=== PATIENT | female | born 1985 | race Caucasian/White ===

== ENCOUNTER 2017-11-11 16:06 | Outpatient (RCR) | payer OTHER ==
--- NOTE | 2017-10-24 17:48 | PT INITIAL EVALUATION ---
MEDICAL DIAGNOSIS: neck pain and headaches in TREATMENT DIAGNOSIS: same DATE OF ONSET: 08/23/17 SUBJECTIVE: Magda Laughlin presents to physical therapy with neck pain and headaches that started approximately 2 months ago. She reports that she feels like the headaches started around the same time that she found out that she was . She reports that she is approximately 11 weeks along. She reports that it feels like the headaches starts behind her R ear and then the neck pain develops. She states that the neck pain and headaches are related. She states that she cannot find a position or a movement that makes the headaches or neck pain feel better once they have commenced. She states that sitting makes her headaches and neck pain worse. She states that she is better in the am and gets worse as the day progresses. Furthermore, she reports that the pain feels better if she is lying down. She denies any of the following symptoms: dizziness, tinnitus, night pain, unexplained weight loss, and difficulty swallowing. She reports that posture does not seem to affect her pain or headaches. She states that she typically has around 1-2 headaches a week, but the headaches and neck pain have lasted as long as 3 days and as short as one day once it commenced. She reports that she is having a great day today and is not currently feeling any headache or neck pain symptoms. Pain location is R sided: C0-C7 REHAB PROBLEM LIST: Increased Pain Decreased ROM Decreased Endurance Decreased Function Decreased ADL's PREVIOUS MEDICAL HISTORY: See EMR OCCUPATION: Coding at [employer] OBJECTIVE: Posture: She demonstrated fair posture, however, the pain did not increase or decreased with posture correction. ROM: cervical: protrusion, retraction, flexion, extension, lateral flexion R/L, and rotation R/L. NIL with normal end feels. Palpation: Today, she was not tender to palpation as she was having a great day. Sensation: Intact in B UEs and does not differ from side to side Special Tests: Since, she did not have pain, we created her symptoms with repeated cervical retraction and cervical retraction with extension and abolished her symptoms with repeated cervical flexion. Mobility: Independent ASSESSMENT: Valeri will benefit from skilled physical therapy addressing the listed impairments to abolish symptoms and return to prior level of function. She demonstrated an anterior derangement that responded well or abolished symptoms to flexion based exercises. Based on today's examination, she has an 85-90 percent chance of making a full recovery in 2-4 weeks. Short Term Goals 2 weeks: Pt will demonstrate centralized neck pain to improve function and QOL. 4 weeks: Pt will demonstrate abolish neck pain and headaches to improve function and QOL. Patient's Goals decrease headaches and neck pain PLAN: Patient to be seen for Manual Therapy/STM/MET Strengthening/condition Range of Motion Spinal Stabilization Work Hardening/Cond Stretching Neuromuscular Re-ed Closed Chain Program Posture/Body mechanics Home Exercise Program Therapeutic Activities 2x/Week for 4 Weeks If you have any questions, comments, or concerns about this report or plan, please contact me at . Thank you, Young Brown, PT, DPT MTDD
[~2017-11-11 16:06] MED LIST: AZIT500T47 PO; CYCL10TA29 PO; DOCU-416 PO; IBUP-56 PO; LEVO1TAB31 PO; LEVO25TA61 PO; LEVO50TA86 PO; OXYC-865 PO
--- NOTE | 2017-11-12 08:17 | PT PLAN OF CARE ---
Physician: Saleem Irving MD Patient is being seen: 1x/week Therapist: Young Brown, PT, DPT Medical Diagnosis: neck pain and headaches in Treatment Diagnosis: same Date of Onset: 08/23/17 Date of Initial Evaluation: 10/23/17 Date patient was last seen: 11/11/17 Number of treatments: 2 Number of cancellations/No shows: 0 INTERVENTIONS: Manual Therapy/STM/MET Strengthening/condition Range of Motion Spinal Stabilization Work Hardening/Cond Stretching Neuromuscular Re-ed Closed Chain Program Posture/Body mechanics Home Exercise Program Therapeutic Activities GOALS: 2 weeks: Pt will demonstrate centralized neck pain to improve function and QOL. MET 4 weeks: Pt will demonstrate abolish neck pain and headaches to improve function and QOL. MET PATIENT'S GOAL: decrease headaches and neck pain Status of Patient's Goals: MET Patient Compliance: MET Prognosis: Excellent Reasons for discontinuing therapy: This is a discharge note for Valeri Vizcarra. Valeri reports that she has been doing her exercise and she has modified her work station. She reports that she has no headache or neck pain. She demonstrated full cervical AROM with normal end feels. She improved her neck pain and disability index from 18% to 2%. At her initial examination, she reported neck pain and headaches to be 4/10 and today she reported her neck pain and headaches to be 0/10. She reports that she felt a headache coming up this week and was able to quickly eliminate her headache with her specific exercise. She has met all of her goals. She is independent with her specific exercise. As a result, she will be discharged from formal PT. Posture: She demonstrated fair posture, however, the pain did not increase or decrease with posture correction. ROM: cervical: protrusion, retraction, flexion, extension, lateral flexion R/L, and rotation R/L. NIL with normal end feels. Palpation: Today, she was not tender to palpation as she was having a great day. Special Tests: Since, she did not have pain, we created her symptoms with repeated cervical retraction and cervical retraction with extension and abolished her symptoms with repeated cervical flexion. Mobility: Independent If you have any questions, please contact me at [phone]. Thank you, Young Brown, PT, DPT [facility]
== END 2017-11-11 18:00 | disposition home or self-care (01) ==
LOC: PT 16:06
PROVIDERS: ATTEND Obstetrics & Gynecology
DX: M54.2 Cervicalgia (principal); R51 Headache; Z33.1 Pregnant state, incidental
CPT/HCPCS: 97161

== ENCOUNTER 2018-05-14 19:28 | Inpatient (IN) | payer OTHER ==
[~2018-05-14] VITALS: Ht 165.1 cm; Wt 95.3 kg
[~2018-05-14 19:28] MED LIST changes: +FAMO20TA28 PO; +LEVO-3 PO; +PREN-127 PO
[2018-05-14] MEDS ORDERED: FLUSH 10 ML SYR IVP PRN (19:30)
[2018-05-14] MEDS ORDERED: METOCLOPRAMIDE 10 MG/2 ML SDV IVP PRN (19:30)
[2018-05-14] MEDS ORDERED: LIDOCAINE/SOD BICARB 8.4% SYR SC PRN (19:30)
[2018-05-14] MEDS ORDERED: FAMOTIDINE(*) 20MG/50ML PREMIX 50 ML IVPB PRN (19:30)
[2018-05-14] MEDS ORDERED: DLR(*) 1000 ML BAG 1,000 ML IV SCH (19:30)
[2018-05-14] MEDS ORDERED: TERBUTALINE SULF 1 MG/ML VIAL SUBQ PRN (19:30)
[2018-05-14] MEDS ORDERED: LIDOCAINE 1% LOCAL 300 MG/30ML INJ PRN (19:30)
[2018-05-14] MEDS ORDERED: fentaNYL CITR 100 MCG/2 ML AMP IVP PRN (19:30)
[2018-05-14 20:30] VITALS: BP 125/85; Ht 165.1 cm; Wt 95.3 kg
[2018-05-14 20:45] LABS: PLATELET COUNT, AUTOMATED 254 K/uL (150-450)
[2018-05-14] MEDS ORDERED: LIDO/EPI 2% MPF 1:200,000 20ML EPI PRN (20:55)
[2018-05-14] MEDS ORDERED: ePHEDrine 25 MG/5 ML DISP.SYR IVP PRN (20:55)
[2018-05-14] MEDS ORDERED: BUPIVACAINE 0.25% MPF INJ EPI PRN (20:55)
[2018-05-14] MEDS ORDERED: BUPIVACAINE 0.5% INJ 30ML VIAL EPI PRN (20:55)
[2018-05-14] MEDS ORDERED: EPIDURAL KEYS XX PRN (20:55)
[2018-05-14] MEDS ORDERED: FENTANYL/ROPIVACAINE 100 ML BAG EPI PRN (20:55)
[2018-05-14] MEDS ORDERED: LIDOCAINE/PF 2% 200MG/10ML AMP 200 MG/10 ML AMPUL EPI PRN (20:55)
[2018-05-14] MEDS ORDERED: ceFAZolin(*) 1 GM VIAL 1 GM in NS(*) 0.9% 100 ML ADDVANT BAG 100 ML IVPB SCH (21:00)
[2018-05-14] MEDS: LR(*) 1000 ML BAG 1,000 ML IV PRN (21:46)
[2018-05-14] MEDS: ceFAZolin(*) 1 GM VIAL 1 GM in NS(*) 0.9% 100 ML ADDVANT BAG 100 ML IVPB SCH (21:47)
[2018-05-15] MEDS ORDERED: OXYTOCIN 30 UNIT/LR 500 ML 500 ML IV PRN (03:00)
[2018-05-15] MEDS: ceFAZolin(*) 1 GM VIAL 1 GM in NS(*) 0.9% 100 ML ADDVANT BAG 100 ML IVPB SCH (05:16)
[2018-05-15] MEDS: LR(*) 1000 ML BAG 1,000 ML IV PRN ×2 (05:55→09:07)
[2018-05-15] MEDS: fentaNYL CITR 100 MCG/2 ML AMP IT PRN ×2 (07:11→08:13)
--- NOTE | 2018-05-15 09:38 | History & Physical ---
History of Present Illness Age of Patient: 32 : 1 Para or TPAL: 0 EDC per LMP: May 15, 2018 Estimated Gestational Age: 40 Chief Complaint Labor History of Present Illness Pt was brought in for IOL with cervical ripening, planned and elective. However , she was found to be 4 cm dilated upon admission and plan changed to Pitocin induction through the night. By this AM she was getting epidural and completely dilated. GBS positive and had started Ancef on admission. Pt has been uncomplicated to date. She does have hypothyroidism well controlled with medication. Past Medical, Surgical, Family and Obstetric Histories reviewed. Please see [facility] chart. History Patient's Blood Type: O Positive Rubella Status: Immune Group B Strep Screen: Positive Allergies: Coded Allergies: Penicillins (Verified Allergy, Severe, SWELLING, 04/28/18) HIVES AND THROAT SWELLING Family History: Diabetes mellitus (DM) MATERNAL GRANDMOTHER No pertinent family history FATHER, Age:54 MOTHER, Age:52 BROTHER OR SISTER Med Rec Home Meds Reported Medications Famotidine (PEPCID) 20 Mg Tablet, 20 MG PO BID, #10 TAB 04/28/18 Vits W-Ca,Fe,Fa(<1MG) ( VITAMINS) 1 Each Tablet, 1 EACH PO DAILY, TAB 04/28/18 Levothyroxine Sodium (LEVOTHYROXINE SODIUM) 100 Mcg Tablet, 112 MCG PO QDAY, TAB 04/28/18 Review of Systems All Systems Reviewed/Normal: Yes, Except as Noted Exam General Exam Vital Signs Vital Signs Date Time Temp Pulse Resp B/P (MAP) Pulse Ox O2 Delivery O2 Flow Rate FiO2 05/14/18 20:30 97.3 83 18 125/85 (98) 95 Room Air General Apperance: Alert/Awake/No Acute Distress (other than labor pains) Neuro: No Gross deficits Cardiovascular: Regular Rate and Rhythm Respiratory: No Respiratory Distress Abdomen: Soft, Non-Tender, Non-Distended, Gravid - Non-Tender Integumentary: Skin Intact without Lesions or Rash Psychological: Alert & Oriented X3, Appropriate Mood & Affect Cervical Dialation: 10 Cervical Effacement (%): 100 Cervical Consistency: Soft Cervical Position: Anterior Station: 0 Presentation: Vertex Fetus Heart Tone Variabilty: Moderate FHT Accelerations: 15X15 FHT Decelerations: Variable (with contraction) FHT Category: I Medical Decision Making Data Points Result Diagram: 05/14/182031 VTE Prophylasis: Adult Deep Vein Thrombosis/Pulmonary: No Pharmacological Contraindicati: Pt at Low Risk for VTE Mechanical Contraindications: Pt at Low Risk for VTE Assessment and Plan ORDER CLERK Plan: Routine Labor Care Problems: (1) 40 weeks gestation of Assessment & Plan: Epidural placed. Will labor down and planning . (2) Normal labor LUPE HOLLAND MD May 15, 2018 09:38
[2018-05-15] MEDS ORDERED: LANOLIN OINT 7 GM TUBE TP PRN (11:25)
[2018-05-15] MEDS ORDERED: HYDROmorphone HCL 2 MG TAB PO PRN (11:25)
[2018-05-15] MEDS ORDERED: ACETAMINOPHEN 325 MG TAB PO PRN (11:25)
[2018-05-15] MEDS ORDERED: BENZOCAINE 20% 60 ML BTL TP PRN (11:25)
[2018-05-15] MEDS ORDERED: HYDROCORTISONE 2.5% CR 30GM TB PR PRN (11:25)
[2018-05-15] MEDS ORDERED: INFLUENZA VIRUS VAC 0.5 ML SYR IM ONLY ONE (11:25)
[2018-05-15] MEDS ORDERED: GLYCERIN/WITCH HAZEL LEAF 1 PK TP PRN (11:25)
[2018-05-15] MEDS ORDERED: MAGNESIUM HYDROXIDE* 30ML UDCP PO PRN (11:25)
--- NOTE | 2018-05-15 11:35 | OB Delivery Note ---
Delivery Note Vaginal Delivery Type: Spont. Vaginal Delivery Delivery Date: May 15, 2018 Delivery Time: 11:02 Estimated Gestational Age(wks): 40 Delivery Anesthesia: Epidural Sex: Male [place] Apgars: 1 Minute (9), 5 Minute (9) Repair Needed: Episiotomy-Midline, Perineal, 2nd Degree Estimated Blood Loss: 300 Delivery Complications: Precipitous Notes: Presented for scheduled cervical ripening last night but found to be in early labor and 4 cm. Augmented with Pitocin through night and advanced into active labor. By 0800 was 9.5 cm and feeling pressure. Epidural placed and complete by 0917. Allowed to labor down. Up to push and baby in DRISS position. Over 3 contractions delivered head over second degree laceration. Nuchal x 1 easily reduced. Shoulders delivered spontaneously and baby followed without complication. Repair with 2-0 Chromic without complication. Placenta delivered spontaneous and intact. Tool And Die Repairer in Attendence: No Copies to: LUPE HOLLAND MD, TRAVIS MD May 15, 2018 11:35
--- NOTE | 2018-05-15 12:48 | Anesthesia OB Pre-Anes Eval ---
History of Present Illness Anesthesia Start Time: 08:44 OB Anesthesia Diagnosis: induction - elective EDC: May 15, 2018 : 1 Para: 0 Pain Ratin Heart Tones: 147 Result Diagram: 05/14/182031 Height (Inches): 65.00 Weight (Pounds): 210 BMI Calculated: 34.94 Past Medical History Medical History: no pertinent history Attended Childbirth Classes?: No Hx Anesthesia Reactions: No Hx Family Anesthesia Reaction: No Current Medications: pitocin Home Meds Reported Medications Famotidine (PEPCID) 20 Mg Tablet, 20 MG PO BID, #10 TAB 04/28/18 Vits W-Ca,Fe,Fa(<1MG) ( VITAMINS) 1 Each Tablet, 1 EACH PO DAILY, TAB 04/28/18 Levothyroxine Sodium (LEVOTHYROXINE SODIUM) 100 Mcg Tablet, 112 MCG PO QDAY, TAB 04/28/18 Allergies: Coded Allergies: Penicillins (Verified Allergy, Severe, SWELLING, 04/28/18) HIVES AND THROAT SWELLING Anesthesia OB ROS Airway Class: ll GI ROS: clear liquids Last Solids Date: May 14, 2018 Last Solids Time: 22:00 ASA Classification: 2 JOSH MUNOZ CRNA May 15, 2018 12:48
--- NOTE | 2018-05-15 12:50 | Procedure Note ---
Anesthetic Placement Note Anesthesia Plan: CSE Permit for Anesthesia Signed: Yes Anesthesia Technique: Patient Sitting Anesthesia Prep: Chlorhexidine Interspace: L 4-5 Local Anesthetic: 1% Lidocaine, 25 Gauge Needle Amount Local - cc's: 3 Anesthesia Needle: 17g Touhy/Schliff Anesthesia Attempts: 1 Loss of Resistance: Normal Saline Depth of JOYCE (cm): 7 Epidural Needle Placement: No CSF, No Blood, No Parasthesia Catheter Insertion (cm): 11 Catheter Type: Hernandez - Spring Wound Epidural Dressing: Tegaderm, Tape Anesthesia Tray: Lot Number ([id number]), Expiration Date (2019-06-26), Reference Number ([id number]) JOSH MUNOZ CRNA May 15, 2018 12:50
--- NOTE | 2018-05-15 12:54 | Anesthesia Progress Note ---
Progress/Maintenance Anesthesia Note Time: 09:30 Pain Intensity: 6 Pump: On Drug Bolus: 0.25% Marcaine Anesthesia Treatment: repeat loading dose JOSH MUNOZ CRNA May 15, 2018 12:54
[2018-05-15 15:37] VITALS: BP 129/60
[2018-05-15] MEDS: IBUPROFEN 800 MG TAB PO SCH (15:58)
[2018-05-15 21:00] VITALS: BP 130/77
[2018-05-16] MEDS: IBUPROFEN 800 MG TAB PO SCH ×3 (00:02→14:04)
[2018-05-16] MEDS: DOCUSATE CALCIUM 240 MG CAP PO SCH ×2 (00:02→09:28)
[2018-05-16 02:51] VITALS: BP 112/66
[2018-05-16 07:58] VITALS: BP 126/78
[2018-05-16 08:40] VITALS: BP 122/80
[2018-05-16 12:10] VITALS: BP 118/78
--- NOTE | 2018-05-16 12:44 | OB/GYN Progress Note ---
OB Subjective Progress Notes Subjective Doing well. Pain controlled and ambulating well. Bleeding light. GI: NEG Nausea : Voiding Well Pain: Mild OB Objective Physical Exam Vital Signs Date Time Temp Pulse Resp B/P (MAP) Pulse Ox O2 Delivery O2 Flow Rate FiO2 05/16/18 08:40 98.1 92 16 122/80 (94) Room Air 05/14/18 20:30 95 General Appearance: Alert/Awake/No Acute Distress (other than labor pains) Neurological: No Gross deficits Cardiovascular: Normal Rhythm & Peripheral Pulses, Regular Rate and Rhythm Respiratory: No Respiratory Distress, Clear to Auscultation Abdomen: Soft, Non-Tender, Non-Distended, Fundus Firm, Non-Tender Integumentary: Skin Intact without Lesions or Rash Psychological: Alert & Oriented X3, Appropriate Mood & Affect Result Diagram: 05/16/18 0621 Assessment and Plan IT INVESTMENT/PORTFOLIO MANAGER Plan: Discharge Home Today Problems: (1) 40 weeks gestation of (2) Normal labor (3) care and examination immediately after delivery Assessment & Plan: Reviewed discharge instructions and precautions. Call if issues. f/u at 6 weeks. LUPE HOLLAND MD May 16, 2018 12:44
[2018-05-16] MEDS ORDERED: IBUP800T37 PO (12:45)
[2018-05-16] MEDS ORDERED: LOR5/325 PO (12:46)
--- NOTE | 2018-05-16 12:48 | OB/GYN Discharge Summary ---
Discharge Summary Reason for Hosp/Final Diag: (1) 40 weeks gestation of (2) Normal labor (3) care and examination immediately after delivery Hospital Course & Plan: Reviewed discharge instructions and precautions. Call if issues. f/u at 6 weeks. Lates Vital Signs Vital Signs Date Time Temp Pulse Resp B/P (MAP) Pulse Ox O2 Delivery O2 Flow Rate FiO2 05/16/18 08:40 98.1 92 16 122/80 (94) Room Air 05/14/18 20:30 95 Weight (Pounds): 210 Result Diagram: 05/16/18620 Condition: Improved Discharge: Home, Self Group Home Meds Active Scripts Hydrocodone Bit/Acetaminophen (HYDROCODON-ACETAMINOPHEN 5-325) 1 Each Tablet, 1 EACH PO Q4-6H Y for PAIN, #14 TAB 0 Refills Prov:DIONISIO NAVARRO MD 05/16/18 Reported Medications Famotidine (PEPCID) 20 Mg Tablet, 20 MG PO BID, #10 TAB 04/28/18 Vits W-Ca,Fe,Fa(<1MG) ( VITAMINS) 1 Each Tablet, 1 EACH PO DAILY, TAB 04/28/18 Levothyroxine Sodium (LEVOTHYROXINE SODIUM) 100 Mcg Tablet, 112 MCG PO QDAY, TAB 04/28/18 Follow up Referrals: [facility] - In 6 Weeks @ [facility] with Dionisio Navarro Md Follow up with: Dr. Navarro [phone] Follow up in: 6 wks PP or PO Discharge Diet: As Tolerates Discharge Activity: As Tolerates, No Heavy Lifting x 6 wks, No Heavy Lifting > 10lb, Pelvic Rest Copies to: DIONISIO NAVARRO MD, TRAVIS MD May 16, 2018 12:48
[2018-05-17] MEDS ORDERED: DIPHTH/TETANUS/ACEL. PERTUSSIS IM ONLY ONE (09:00)
[2018-05-17] MEDS ORDERED: MEASLES,MUMP,RUBELLA VAC 0.5ML SUBQ ONE (09:00)
== END 2018-05-16 17:15 | disposition home or self-care (01) | DRG 775 ==
LOC: OB 19:28
PROVIDERS: ADMIT Obstetrics & Gynecology; ATTEND Obstetrics & Gynecology
PROC: 0W8NXZZ Division of Female Perineum, External Approach (ICD-10-PCS; principal; 2018-05-15)
PROC: 0KQM0ZZ Repair Perineum Muscle, Open Approach (ICD-10-PCS; principal; 2018-05-15)
PROC: 10E0XZZ Delivery of Products of Conception, External Approach (ICD-10-PCS; principal; 2018-05-15)
DX: O99.824 Streptococcus B carrier state complicating childbirth (principal); Z37.0 Single live birth; Z3A.40 40 weeks gestation of pregnancy; O99.284 Endocrine, nutritional and metabolic diseases complicating childbirth; E03.9 Hypothyroidism, unspecified; Z88.0 Allergy status to penicillin; O70.1 Second degree perineal laceration during delivery; O69.81X0 Labor and delivery complicated by cord around neck, without compression, not applicable or unspecified
CPT/HCPCS: 36415; 85025; 85027; 86850; 86900; 86901; J0690; J2590; J3010; J7050; J7120

== ENCOUNTER 2018-09-18 08:16 | Emergency (ER) | payer OTHER ==
[2018-05-14 20:30] VITALS: Wt 81.6 kg
[~2018-09-18 08:16] MED LIST changes: +IBUP800T37 PO; +LOR5/325 PO
[2018-09-18 08:23] VITALS: BP 119/83
[2018-09-18] MEDS ORDERED: GUAI600T57 PO (08:26)
[2018-09-18] MEDS ORDERED: AZIT-1 PO (08:38)
--- NOTE | 2018-09-18 08:38 | ER Report ---
History and Physical Time Seen By MD: 08:31 Hx. of Stated Complaint: SORE THOAT, BILAT EAR PAIN, CONGESTION, HEADACHES, SLIGHT FEVERS X 10 DAYS HPI/ROS CHIEF COMPLAINT: Fever, headaches, sinus pressure, ear pain HISTORY OF PRESENT ILLNESS: Patient is a 33-year-old female who states that she's had upper respiratory symptoms for approximately 10 days. She currently is describing fevers headaches some body aches along with sinus pressure and nasal discharge. She does report ill contacts at home. Patient states she is breast- feeding a 4-month-old. REVIEW OF SYSTEMS: ENT: Sinus pressure, ear pain Respiratory: Dry cough Cardiovascular: No chest pain, no palpitations. Gastrointestinal: No vomiting, no abdominal pain. Musculoskeletal: No back pain. Allergies: Coded Allergies: Penicillins (Verified Allergy, Severe, SWELLING, 09/18/18) HIVES AND THROAT SWELLING Home Meds Active Scripts Pseudoephedrine Hcl (SUDAFED 12 HOUR) 120 Mg Tablet.er, 120 MG PO Q12H, #20 TAB 0 Refills Prov:NELI DUVALL MD 09/18/18 Azithromycin (ZITHROMAX) 250 Mg Tablet, 1 TAB PO QDAY for 4 Days, #4 TAB 1 Refill Prov:NELI DUVALL MD 09/18/18 Ibuprofen (IBUPROFEN) 800 Mg Tablet, 800 MG PO Q8H PRN for PAIN, #30 TAB 1 Refill Prov:LUPE HOLLAND MD 05/16/18 Reported Medications Guaifenesin (MUCINEX) 600 Mg Tablet.er, 600 MG PO PRN 09/18/18 Levothyroxine Sodium (LEVOTHYROXINE SODIUM) 100 Mcg Tablet, 112 MCG PO QDAY, TAB 04/28/18 Discontinued Reported Medications Famotidine (PEPCID) 20 Mg Tablet, 20 MG PO BID, #10 TAB 04/28/18 Vits W-Ca,Fe,Fa(<1MG) ( VITAMINS) 1 Each Tablet, 1 EACH PO DAILY, TAB 04/28/18 Discontinued Scripts Hydrocodone Bit/Acetaminophen (HYDROCODON-ACETAMINOPHEN 5-325) 1 Each Tablet, 1 EACH PO Q4-6H PRN for PAIN, #14 TAB 0 Refills Prov:LUPE HOLLAND MD 05/16/18 Past Medical/Surgical History Breast feeding currently Hx Smoking: No Smoking Status: Never Smoker Exposure to Second Hand Smoke?: No Constitutional Vital Sign - Last 24 Hours 09/18/18 08:23 Temp 98.6 Pulse 85 Resp 16 B/P (MAP) 119/83 Pulse Ox 92 O2 Delivery Room Air Physical Exam General Appearance: Alert, no distress. Eyes: Pupils equal and round no pallor or injection. ENT, Mouth: Ears: Tympanic membranes are normal. Nose: No bleeding. Mouth: Mucous membranes are moist. Throat: No erythema with posterior cobblestoning and uvula is midline. Musculoskeletal: Neck is supple non tender, no adenopathy. Skin: Warm and dry, no rashes. [ ] Medical Decision Making ED Course/Re-evaluation ED Course 09/18/2018 8:35:45 am patient with likely sinusitis based on history of 10 days of upper respiratory symptoms, ear pain and sinus pressure. Patient is allergic to penicillin will place on Zithromax. Decision to Disposition Date: Sep 18, 2018 Decision to Disposition Time: 08:42 Depart Departure Latest Vital Signs Vital Signs Date Time Temp Pulse Resp B/P (MAP) Pulse Ox O2 Delivery O2 Flow Rate FiO2 09/18/18 08:23 98.6 85 16 119/83 92 Room Air Impression: Primary Impression: Acute sinus infection Condition: Improved Disposition: HOME OR SELF-CARE New Scripts Pseudoephedrine Hcl (SUDAFED 12 HOUR) 120 Mg Tablet.er 120 MG PO Q12H, #20 TAB 0 Refills Prov: NELI DUVALL MD 09/18/18 Azithromycin (ZITHROMAX) 250 Mg Tablet 1 TAB PO QDAY for 4 Days, #4 TAB 1 Refill Prov: NELI DUVALL MD 09/18/18 Patient Instructions: Sinusitis (ED) Problem Qualifiers Primary Impression: Acute sinus infection Sinusitis location: unspecified location Recurrence: not specified as recurrent Qualified Codes: J01.90 - Acute sinusitis, unspecified NELI DUVALL MD Sep 18, 2018 08:38
[2018-09-18] MEDS ORDERED: AZITHROMYCIN 250 MG TAB PO ONE (08:40)
[2018-09-18] MEDS ORDERED: PSEU120T69 PO (08:43)
== END 2018-09-18 08:50 | disposition home or self-care (01) ==
LOC: ER 08:42
DX: J01.90 Acute sinusitis, unspecified (principal); Z88.0 Allergy status to penicillin
CPT/HCPCS: 99282; Q0144

== ENCOUNTER 2018-11-01 14:58 | Emergency (ER) | payer OTHER ==
[2018-05-14 20:30] VITALS: Wt 81.6 kg
[~2018-11-01 14:58] MED LIST changes: +AZIT-1 PO; +GUAI600T57 PO; +PSEU120T69 PO
[2018-11-01] MEDS ORDERED: NS(*) 0.9% 1000 ML BAG 1,000 ML IV ONE (15:52)
[2018-11-01] MEDS ORDERED: ONDANSETRON 4 MG/2 ML VIAL IVP ONE (15:55)
[2018-11-01 16:04] LABS: PLATELET COUNT, AUTOMATED 259 K/uL (150-450)
[2018-11-01] MEDS ORDERED: LIDOCAINE 2% VISC SLN 15ML UDC PO ONE (16:15)
[2018-11-01] MEDS ORDERED: FAMOTIDINE(*) 20MG/50ML PREMIX 50 ML IVPB ONE (16:15)
[2018-11-01] MEDS ORDERED: MAG HYD/AL HYD/SIMETH 30ML UDC PO ONE (16:15)
[2018-11-01] MEDS ORDERED: ONDA4TAB9 PO (17:25)
--- NOTE | 2018-11-01 17:26 | ER Report ---
History and Physical Time Seen By MD: 15:15 Hx. of Stated Complaint: n/v/d HPI/ROS CHIEF COMPLAINT: Vomiting HISTORY OF PRESENT ILLNESS: Patient presents with sudden onset of vomiting multiple episodes. Vomiting was initially food now is yellowish. No bloody or black vomit. Patient has had some watery diarrhea. Abdominal crampy pain began after vomiting. Pain is moderate, radiates throughout abdomen, relieved somewhat with vomiting but quickly recurs. Patient denies fever, chest pain, shortness breath. She has not no if she has been exposed to include source. Does not have any known sick contacts. REVIEW OF SYSTEMS: Constitutional: No fever, no chills. Eyes: No discharge. ENT: No sore throat. Cardiovascular: No chest pain, no palpitations. Respiratory: No cough, no shortness of breath. Gastrointestinal: above Genitourinary: no change in urination Musculoskeletal: No back pain. Skin: No rashes. Neurological: No headache. Remainder of the 14 system rev: Yes Allergies: Coded Allergies: Penicillins (Verified Allergy, Severe, SWELLING, 11/01/18) HIVES AND THROAT SWELLING Home Meds Active Scripts Ondansetron 4 Mg Odt (ONDANSETRON 4 MG ODT) 4 Mg Tab.rapdis, 4 MG PO ONCE for Muscle Relaxant, #10 TAB Prov:NELI VALENTINE MD 11/01/18 Discontinued Reported Medications Guaifenesin (MUCINEX) 600 Mg Tablet.er, 600 MG PO PRN 09/18/18 Levothyroxine Sodium (LEVOTHYROXINE SODIUM) 100 Mcg Tablet, 112 MCG PO QDAY, TAB 04/28/18 Discontinued Scripts Pseudoephedrine Hcl (SUDAFED 12 HOUR) 120 Mg Tablet.er, 120 MG PO Q12H, #20 TAB 0 Refills Prov:NELI DUVALL MD 09/18/18 Azithromycin (ZITHROMAX) 250 Mg Tablet, 1 TAB PO QDAY for 4 Days, #4 TAB 1 Refill Prov:NELI DUVALL MD 09/18/18 Ibuprofen (IBUPROFEN) 800 Mg Tablet, 800 MG PO Q8H PRN for PAIN, #30 TAB 1 Refill Prov:LUPE HOLLAND MD 05/16/18 Reviewed Nurses Notes: Yes Hx Smoking: No Smoking Status: Never Smoker Exposure to Second Hand Smoke?: No Constitutional Vital Sign - Last 24 Hours 11/01/18 11/01/18 11/01/18 11/01/18 15:32 15:34 15:45 15:58 Temp 97.6 Pulse 101 92 Resp 16 B/P (MAP) 100/79 (86) 100/79 113/79 (90) Pulse Ox 96 94 O2 Delivery Room Air 11/01/18 11/01/18 11/01/18 11/01/18 16:00 16:15 16:20 16:30 Pulse 98 B/P (MAP) 98/68 (78) 101/64 (76) 104/64 (77) Pulse Ox 95 11/01/18 11/01/18 11/01/18 11/01/18 16:45 17:20 17:25 17:27 Pulse 89 88 B/P (MAP) 101/69 (80) 116/76 (89) Pulse Ox 95 11/01/18 17:30 B/P (MAP) 112/77 (89) Intake and Output 11/01/18 11/01/18 11/02/18 15:00 23:00 07:00 Intake Total 1050 ml Balance 1050 ml Physical Exam General Appearance: The patient is alert, has no immediate need for airway protection and no signs of toxicity. Eyes: Pupils equal and round no pallor or injection. ENT, Mouth: Mucous membranes are moist. Respiratory: There are no retractions, lungs are clear to auscultation. Cardiovascular: Regular rate and rhythm. Gastrointestinal: hyperactive bowel sounds, abdominal pain throughout without peritoneal sgs Neurological: alert, oriented, moves all ext Skin: Warm and dry, no rashes. Musculoskeletal: Extremities are nontender, nonswollen and have full range of motion. DIFFERENTIAL DIAGNOSIS: After history and physical exam differential diagnosis was considered for abdominal pain including but not limited to appendicitis, cholecystitis, gastritis and urinary tract infection. Medical Decision Making Data Points Result Diagram: 11/01/18 1548 11/01/18 1548 Laboratory Hematology Test 11/01/18 15:48 11/01/18 17:00 Red Blood Count 5.86 M/uL (4.17-5.56) Mean Corpuscular Volume 81.0 fL (80.0-96.0) Mean Corpuscular Hemoglobin 27.5 pg (26.0-33.0) Mean Corpuscular Hemoglobin Concent 34.0 g/dL (32.0-36.0) Red Cell Distribution Width 15.4 % (11.5-14.5) Mean Platelet Volume 7.8 fL (7.2-11.1) Neutrophils (%) (Auto) 89.0 % (39.4-72.5) Lymphocytes (%) (Auto) 4.7 % (17.6-49.6) Monocytes (%) (Auto) 5.1 % (4.1-12.4) Eosinophils (%) (Auto) 0.6 % (0.4-6.7) Basophils (%) (Auto) 0.6 % (0.3-1.4) Nucleated RBC Relative Count (auto) 0.0 /100WBC Neutrophils # (Auto) 9.9 K/uL (2.0-7.4) Lymphocytes # (Auto) 0.5 K/uL (1.3-3.6) Monocytes # (Auto) 0.6 K/uL (0.3-1.0) Eosinophils # (Auto) 0.1 K/uL (0.0-0.5) Basophils # (Auto) 0.1 K/uL (0.0-0.1) Nucleated RBC Absolute Count (auto) 0.00 K/uL Sodium Level 138 mmol/L (137-145) Potassium Level 4.0 mmol/L (3.5-5.0) Chloride Level 106 mmol/L (98-107) Carbon Dioxide Level 19 mmol/L (22-31) Blood Urea Nitrogen 18 mg/dl (7-18) Creatinine 1.00 mg/dl (0.52-1.04) Glomerular Filtration Rate Calc > 60.0 Random Glucose 100 mg/dl (75-110) Calcium Level 9.8 mg/dl (8.4-10.2) Total Bilirubin 2.1 mg/dl (0.2-1.3) Aspartate Amino Transf (AST/SGOT) 57 U/L (0-35) Alanine Aminotransferase (ALT/SGPT) 43 U/L (0-56) Alkaline Phosphatase 119 U/L (0-126) Total Protein 8.9 g/dl (6.3-8.2) Albumin 4.9 g/dl (3.5-5.0) Urine Color Yellow Urine Clarity Clear Urine pH 5.0 pH (4.8-9.5) Urine Specific [place] 1.024 Urine Protein 30 mg/dL (NEGATIVE) Urine Glucose (UA) Negative mg/dL (NEGATIVE) Urine Ketones Trace mg/dL (NEGATIVE) Urine Blood Negative (NEGATIVE) Urine Nitrite Negative (NEGATIVE) Urine Bilirubin Negative (NEGATIVE) Urine Urobilinogen Negative mg/dL (0.2-1.9) Urine Leukocyte Esterase Negative (NEGATIVE) Urine RBC <1 /HPF (0-2/HPF) Urine WBC 1 /HPF (0-5/HPF) Urine Squamous Epithelial Cells Many /LPF (</=FEW) Urine Bacteria Negative /HPF (NONE-FEW) Urine Hyaline Casts Few /LPF (NONE-FEW) Urine Mucus Few /HPF (NONE-FEW) Chemistry Test 11/01/18 15:48 11/01/18 17:00 White Blood Count 11.1 k/uL (4.5-11.0) Red Blood Count 5.86 M/uL (4.17-5.56) Hemoglobin 16.1 g/dL (12.0-16.0) Hematocrit 47.5 % (34.0-47.0) Mean Corpuscular Volume 81.0 fL (80.0-96.0) Mean Corpuscular Hemoglobin 27.5 pg (26.0-33.0) Mean Corpuscular Hemoglobin Concent 34.0 g/dL (32.0-36.0) Red Cell Distribution Width 15.4 % (11.5-14.5) Platelet Count 259 K/uL (150-450) Mean Platelet Volume 7.8 fL (7.2-11.1) Neutrophils (%) (Auto) 89.0 % (39.4-72.5) Lymphocytes (%) (Auto) 4.7 % (17.6-49.6) Monocytes (%) (Auto) 5.1 % (4.1-12.4) Eosinophils (%) (Auto) 0.6 % (0.4-6.7) Basophils (%) (Auto) 0.6 % (0.3-1.4) Nucleated RBC Relative Count (auto) 0.0 /100WBC Neutrophils # (Auto) 9.9 K/uL (2.0-7.4) Lymphocytes # (Auto) 0.5 K/uL (1.3-3.6) Monocytes # (Auto) 0.6 K/uL (0.3-1.0) Eosinophils # (Auto) 0.1 K/uL (0.0-0.5) Basophils # (Auto) 0.1 K/uL (0.0-0.1) Nucleated RBC Absolute Count (auto) 0.00 K/uL Glomerular Filtration Rate Calc > 60.0 Calcium Level 9.8 mg/dl (8.4-10.2) Total Bilirubin 2.1 mg/dl (0.2-1.3) Aspartate Amino Transf (AST/SGOT) 57 U/L (0-35) Alanine Aminotransferase (ALT/SGPT) 43 U/L (0-56) Alkaline Phosphatase 119 U/L (0-126) Total Protein 8.9 g/dl (6.3-8.2) Albumin 4.9 g/dl (3.5-5.0) Urine Color Yellow Urine Clarity Clear Urine pH 5.0 pH (4.8-9.5) Urine Specific [place] 1.024 Urine Protein 30 mg/dL (NEGATIVE) Urine Glucose (UA) Negative mg/dL (NEGATIVE) Urine Ketones Trace mg/dL (NEGATIVE) Urine Blood Negative (NEGATIVE) Urine Nitrite Negative (NEGATIVE) Urine Bilirubin Negative (NEGATIVE) Urine Urobilinogen Negative mg/dL (0.2-1.9) Urine Leukocyte Esterase Negative (NEGATIVE) Urine RBC <1 /HPF (0-2/HPF) Urine WBC 1 /HPF (0-5/HPF) Urine Squamous Epithelial Cells Many /LPF (</=FEW) Urine Bacteria Negative /HPF (NONE-FEW) Urine Hyaline Casts Few /LPF (NONE-FEW) Urine Mucus Few /HPF (NONE-FEW) Urinalysis Test 11/01/18 17:00 Urine Color Yellow Urine Clarity Clear Urine pH 5.0 pH (4.8-9.5) Urine Specific [place] 1.024 Urine Protein 30 mg/dL (NEGATIVE) Urine Glucose (UA) Negative mg/dL (NEGATIVE) Urine Ketones Trace mg/dL (NEGATIVE) Urine Blood Negative (NEGATIVE) Urine Nitrite Negative (NEGATIVE) Urine Bilirubin Negative (NEGATIVE) Urine Urobilinogen Negative mg/dL (0.2-1.9) Urine Leukocyte Esterase Negative (NEGATIVE) Urine RBC <1 /HPF (0-2/HPF) Urine WBC 1 /HPF (0-5/HPF) Urine Squamous Epithelial Cells Many /LPF (</=FEW) Urine Bacteria Negative /HPF (NONE-FEW) Urine Hyaline Casts Few /LPF (NONE-FEW) Urine Mucus Few /HPF (NONE-FEW) ED Course/Re-evaluation ED Course Pt presents with n/v/d > abdominal pain; sudden onset; remains hd stable in ED and sig improved after ED eval; of note pt has elevated bilirubin similar to other similar patients recently. Will d/c with SRP's as she is sig improved and does not have acute abd. Understands strict rtn precautions and need for close f/u. Decision to Disposition Date: Nov 01, 2018 Decision to Disposition Time: 17:30 Depart Departure Latest Vital Signs Vital Signs Date Time Temp Pulse Resp B/P (MAP) Pulse Ox O2 Delivery O2 Flow Rate FiO2 11/01/18 17:30 112/77 (89) 11/01/18 17:25 88 95 11/01/18 15:34 97.6 16 Room Air Impression: Primary Impression: Vomiting and diarrhea Additional Impression: Elevated bilirubin Condition: Improved Disposition: HOME OR SELF-CARE New Scripts Ondansetron 4 Mg Odt (ONDANSETRON 4 MG ODT) 4 Mg Tab.rapdis 4 MG PO ONCE for Muscle Relaxant, #10 TAB Prov: NELI VALENTINE MD 11/01/18 Patient Instructions: Acute Nausea and Vomiting (ED) Additional Instructions: As we discussed, your bilirubin was elevated. This may be due to the illness, however follow-up this week to have it rechecked. Please return immediately if you are having uncontrollable vomiting, abdominal pain, or any concerns. I prescribed Zofran to take as needed for nausea. No nausea medication is known to be completely safe in breast-feeding, however there are not known adverse effects with Zofran. Take only as needed in order to maintain hydration. Problem Qualifiers NELI VALENTINE MD Nov 01, 2018 17:26
[2018-11-01 17:30] VITALS: BP 112/77
== END 2018-11-01 17:48 | disposition home or self-care (01) ==
LOC: ER 15:52
DX: R11.2 Nausea with vomiting, unspecified (principal); R19.7 Diarrhea, unspecified; R10.9 Unspecified abdominal pain
CPT/HCPCS: 81001; 85025; 96365; 96375; 99284; J2405; J3490; J7030; 82040; 82247; 82310; 82374; 82435; 82565; 82947; 84075; 84132; 84155; 84295; 84450; 84460; 84520

== ENCOUNTER → 2018-11-12 | Outpatient (CLI) | payer OTHER ==
[2018-05-14 20:30] VITALS: BMI 34.9
[~2018-11-12] MED LIST changes: +LEVO25TA57 PO; +ONDA4TAB9 PO
== END ==
LOC: LAB 14:33
PROVIDERS: ATTEND Obstetrics & Gynecology
DX: E03.9 Hypothyroidism, unspecified (principal); E80.6 Other disorders of bilirubin metabolism
CPT/HCPCS: 36415; 82040; 82247; 82310; 82374; 82435; 82565; 82947; 84075; 84132; 84155; 84295; 84443; 84450; 84460; 84520

== ENCOUNTER → 2019-01-05 | Outpatient (CLI) | payer OTHER ==
[2018-05-14 20:30] VITALS: BMI 34.9
== END ==
LOC: LAB 12:07
PROVIDERS: ATTEND Obstetrics & Gynecology
DX: E03.9 Hypothyroidism, unspecified (principal)
CPT/HCPCS: 36415; 84443

== ENCOUNTER → 2019-02-05 | Outpatient (CLI) | payer OTHER ==
[2018-05-14 20:30] VITALS: BMI 34.9
[~2019-02-05] MED LIST changes: +LEV125 PO
== END ==
LOC: LAB 14:50
PROVIDERS: ATTEND Obstetrics & Gynecology
DX: E03.9 Hypothyroidism, unspecified (principal)
CPT/HCPCS: 36415; 84443

== ENCOUNTER → 2019-04-07 | Outpatient (CLI) | payer OTHER ==
[2018-05-14 20:30] VITALS: BMI 34.9
== END ==
LOC: LAB 11:21
PROVIDERS: ATTEND Obstetrics & Gynecology
DX: E03.9 Hypothyroidism, unspecified (principal)
CPT/HCPCS: 36415; 84443